=== PATIENT | male | born 1965 | race Caucasian/White ===

== ENCOUNTER → 2021-09-09 15:24 | Outpatient (ROUT) | payer OTHER, SELFPAY ==
[2021-09-09 16:02] LABS: COVID19 -Nasal RAPID Negative (Negative)
== END ==
PROVIDERS: PCP Internal Medicine; Visit Provider Family Medicine Sleep Medicine
DX: Z20.822 Contact with and (suspected) exposure to COVID-19 (principal)
CPT/HCPCS: 87635; C9803

== ENCOUNTER 2021-09-12 10:34 | Day surgery (SDC) | payer OTHER, SELFPAY ==
--- NOTE | 2021-09-12 | PATH_ITS ---
[facility] Accession Number: [id number] . 01 Material submitted: . esophagus - MID ESOPHAGUS BIOPSY . 02 Diagnosis: Mid Esophagus, Biopsy: Squamous epithelium with no diagnostic abnormality. Intraepithelial eosinophils are not increased. Negative for dysplasia and malignancy. V 09/15/2021 1145 Local . 02 Electronically signed: . Catalina Villalba MD, Pathologist NPI- [id number] . 01 Gross description: . MID ESOPHAGUS BIOPSY: Received in formalin are 4 fragment(s) of rousseau, soft tissue measuring 0.1 x 0.1 x 0.1 cm to 0.2 x 0.2 x 0.2 cm submitted entirely in 1 cassette(s) /SILVIA 09/13/20211950 Local . 02 Pathologist provided ICD-10: R13.14 . 02 CPT . 146855 Performed at: 01 [facility] [address] [facility], [place], [place] [id number] MD Peña Ariza MD Phone: [phone] Performed at: 02 [facility] [address] [place], [place] [id number] MD Catalina Villalba MD Phone: [phone]
--- NOTE | 2021-09-12 10:51 | PM.HP.1 ---
History of Present Illness History of Present Illness Date Patient Seen: 09/12/21 Time Patient Seen: 10:51 Chief complaint: EGD W/POSS BX & DILATION/BANDING Narrative: I reviewed Dr. Palacios's note. No significant changes. Patient History Medical History Dysphagia Hypertension Meds Home Medications and Allergies Home Medications Medication Instructions Recorded Confirmed Type famotidine 40 mg tablet 40 mg PO DAILY 09/12/21 09/12/21 History lisinopril 10 mg tablet 10 mg PO DAILY 09/12/21 09/12/21 History Allergies Allergy/AdvReac Type Severity Reaction Status Date / Time Latex, Natural Rubber Allergy Severe Anaphylaxis Verified 09/12/21 10:51 Review of Systems Review of Systems ROS: Yes All systems reviewed with the patient and are negative except as otherwise documented Exam Const General: cooperative and comfortable Orientation: alert HENMT Head: normocephalic Ears: external ears normal Nose: external nose normal Face and sinus: normal facial exam Mouth: oral mucosae normal Eyes General: appearance normal, both eyes and all related structures Neck Neck: normal visual inspection Chest Chest: normal inspection of the chest Resp Effort & Inspection: normal respiratory effort Cardio Rate: regular rate GI Inspection: normal to inspection Skin General: no rashes or lesions noted and No jaundice Neuro General: patient alert and moves all extremities Cognition: normal cognition Speech: speech normal Extrem General: no pedal edema Psych Appearance: grossly normal Assessment & Plan Assessment & Plan narrative: 56-year-old male with dysphagia. EGD is pursued today. Time Spent With Patient Critical Care time: I spent a total of [] minutes of critical care time on this patient's care today; this time is exclusive of procedural time.
--- NOTE | 2021-09-12 10:53 | PM.PREOP ---
Pre-operative Note COVID-19 COVID-19 status: Negative Result date/Date tested (Pos, Neg/Pending): 09/09/21 Criteria for continued procedure: Possibility delay results in more complex future surgery or treatment Interval Note History & Physical reviewed/Exam performed by Physician: Yes Changes to H&P: No ASA Class (for procedural sedation): II
[2021-09-12 10:54] VITALS: BP 143/94; PULSE 68; RESP 16; TEMP 35.9; O2SAT 99; BMI 28.5
[2021-09-12] MEDS: SODIUM CHLORIDE 0.9% 1,000 ML 84 ML IV (11:15)
--- NOTE | 2021-09-12 11:29 | PM.OP.EGD ---
Operative Date/Time/Diagnoses Date of procedure: 09/12/21 Time of procedure: 11:29 Pre-op diagnosis: Dysphagia Post-op diagnosis: same Procedure & Clinicians Study performed: EGD with balloon dilatation and biopsies Same procedure as scheduled: Yes Indications: Dysphagia Surgeon: Reynaldo Smart Procedure Notes SCOAP/Timeout: Done Procedure in detail: After the risks and benefits were explained, written and verbal informed consent was obtained. The patient was brought into the procedure room and placed into the left lateral decubitus position. Conscious sedation medication was applied as per nursing documentation. The scope was introduced into the mouth through the bite block and advanced under direct visualization to the 2nd portion of the duodenum. The scope was slowly withdrawn carefully examining the mucosa for any defects or lesions. Retroflexed views were accomplished in the stomach. The stomach was decompressed, the scope was then removed from the patient who tolerated the procedure well. Sedation minutes: 11 Complications: none Impression: 1. Duodenum no pathology appreciated from the bulb through to the 2nd portion. 2. Stomach: No outlet obstruction no mass lesions no ulcerations no significant mucosal pathology including retroflexed views of the LES 3. Esophagus: The squamocolumnar junction correlated with the top of the gastric folds. GEJ was at approximately 40 cm from the incisors. The patient did have a moderate Schatzki's ring which just barely allowed passage of the endoscope on her initial pass into stomach. No sign of any active esophagitis. I elected to proceed with balloon dilatation using a CRE balloon at the 12, 13.5, and 15 mm setting. 12 mm was held for 30 seconds and the other 2 settings for 1 minute each. There was an appropriate rent in the mucosa noted and photographed after the intervention. No sustained significant hemorrhage. I elected to take additional biopsies from the midesophagus for exclusion of eosinophilic infiltration. Endoscopic diagnosis 1. Schatzki's ring status post balloon dilatation to 15 mm 2. Otherwise visually unremarkable EGD Post-procedure Plan for aftercare: 1. Await histopathology 2. Repeat EGD for further dilatation as needed persisting symptoms of dysphagia Disposition: PACU
[2021-09-12 11:35] VITALS: BP 115/73; PULSE 80; RESP 18; TEMP 36.4; O2SAT 98
[2021-09-12 11:40] VITALS: BP 119/74; PULSE 78; RESP 18; O2SAT 95
[2021-09-12 11:45] VITALS: BP 107/85; PULSE 78; RESP 16
--- NOTE | 2021-09-12 11:48 | SUR.PREOP ---
Stable PACU stay, belly soft, no SOB,nausea/pain or discomfort. To OPD, stable.
[2021-09-12 11:51] VITALS: BP 123/86; PULSE 71; RESP 19; TEMP 36.4; O2SAT 96
[2021-09-12 12:00] VITALS: BP 114/88; PULSE 72; RESP 16; TEMP 36.5; O2SAT 97
== END 2021-09-12 12:10 | disposition home or self-care (01) ==
PROVIDERS: PCP Internal Medicine; Referring Provider Internal Medicine Gastroenterology; Visit Provider Internal Medicine Gastroenterology
PROC: 0DJ08ZZ Inspection of Upper Intestinal Tract, Via Natural or Artificial Opening Endoscopic (ICD-10-PCS; CPT 43235; principal; 2021-09-12 11:30)
DX: R13.10 Dysphagia, unspecified (principal); K22.2 Esophageal obstruction
CPT/HCPCS: 43249; 43239; J2704

== ENCOUNTER 2024-01-21 09:44 | Day surgery (SDC) | payer OTHER, SELFPAY ==
[2024-01-21] MEDS: LACTATED RINGERS 1,000 ML 150 ML IV (09:45)
[2024-01-21 10:11] VITALS: BP 130/85; PULSE 60; RESP 18; TEMP 36.5; O2SAT 98
--- NOTE | 2024-01-21 10:22 | PM.HP.1 ---
History of Present Illness History of Present Illness Date Patient Seen: 01/21/24 Time Patient Seen: 10:22 Chief complaint: SDC Narrative: 58-year-old male with a history of dysphagia and Schatzki's ring status post dilatation. I reviewed my office note. No significant changes. [facility] Medical History Dysphagia Hypertension Social History household members: spouse Smoking Status: Never smoker alcohol intake: current Meds Home Medications and Allergies Home Medications Medication Instructions Recorded Confirmed Type famotidine 40 mg tablet 40 mg PO DAILY 09/12/21 01/21/24 History lisinopril 10 mg tablet 10 mg PO DAILY 09/12/21 09/12/21 History Allergies Allergy/AdvReac Type Severity Reaction Status Date / Time Latex, Natural Rubber Allergy Severe Anaphylaxis Verified 01/21/24 10:08 Review of Systems Review of Systems ROS: Yes All systems reviewed with the patient and are negative except as otherwise documented Exam Vital Signs (past 8 hours): - 01/21/24 10:11 Temperature 97.7 F Pulse Rate 60 Respiratory Rate 18 Blood Pressure 130/85 Pulse Oximetry 98 Oxygen Delivery Method Room Air Oxygen Delivery Method Room Air Const General: cooperative HENMT Head: normal to inspection Eyes General: appearance normal, both eyes and all related structures Neck Neck: normal visual inspection Chest Chest: normal inspection of the chest Resp Effort & Inspection: normal respiratory effort Cardio Rate: regular rate GI Inspection: normal to inspection Skin General: no rashes or lesions noted Neuro General: patient alert and patient awake Extrem General: normal to inspection and no pedal edema Psych Appearance: grossly normal Assessment & Plan Assessment & Plan narrative: 58-year-old male with a history of reflux, dysphagia, Schatzki's ring. Repeat EGD and probable dilatation is pursued today.
--- NOTE | 2024-01-21 10:23 | PM.PREOP ---
Pre-operative Note Interval Note History & Physical reviewed/Exam performed by Physician: Yes Changes to H&P: No ASA Class (for procedural sedation): II
--- NOTE | 2024-01-21 10:44 | PM.OP.EGD ---
Operative Date/Time/Diagnoses Date of procedure: 01/21/24 Time of procedure: 10:44 Pre-op diagnosis: Dysphagia Post-op diagnosis: same Procedure & Clinicians Study performed: EGD with balloon dilatation Same procedure as scheduled: Yes Indications: Dysphagia Surgeon: Reynaldo Smart Procedure Notes SCOAP/Timeout: Done Procedure in detail: After the risks and benefits were explained, written and verbal informed consent was obtained. The patient was brought into the procedure room and placed into the left lateral decubitus position. Please see anesthesia note for sedation details. The scope was introduced into the mouth through the bite block and advanced under direct visualization to the 2nd portion of the duodenum. The scope was slowly withdrawn carefully examining the mucosa for any defects or lesions. Retroflexed views were accomplished in the stomach. The stomach was decompressed, the scope was then removed from the patient who tolerated the procedure well. Sedation minutes: 12 Specimen(s): none sent Complications: none Impression: 1. Duodenal: No significant mucosal pathology from the bulb through to the 2nd portion. 2. Stomach: No outlet obstruction. No ulcers or mass lesions. No significant mucosal pathology appreciated throughout. Hill valve grade 2 was noted on retroflexed views of the LES. 3. Esophagus: Patient had a subtle sliding hiatal hernia. There was a moderate Schatzki's ring once again. No sign of active erosive esophagitis. I elected to pursue balloon dilatation using the 12-15 mm CRE balloon. Each of the 3 settings was held for approximately 30 seconds. At the end of the final dilatation inspection of the ring indicated there had been an appropriate rent in the ring. There was no sustained bleeding. No additional mucosal pathology appreciated throughout the esophagus. Endoscopic diagnosis 1. Schatzki's ring status post dilatation to 15 mm. 2. Subtle small sliding hiatal hernia Post-procedure Plan for aftercare: 1. Continue current anti-reflux therapy 2. Follow up GI clinic in approximately 3 months. 3. Repeat EGD as needed 4. Advance to extremely well chewed food as tolerated. Disposition: PACU
[2024-01-21 10:46] VITALS: BP 111/73; PULSE 85; RESP 18; TEMP 36.9; O2SAT 98
[2024-01-21 10:51] VITALS: BP 111/75; PULSE 84; RESP 19; O2SAT 98
[2024-01-21 10:56] VITALS: BP 111/85; PULSE 89; RESP 17; O2SAT 97
[2024-01-21 11:01] VITALS: BP 118/90; PULSE 85; RESP 17; TEMP 36.4; O2SAT 97
[2024-01-21 11:09] VITALS: BP 119/84; PULSE 81; RESP 16; TEMP 36.2; O2SAT 98
== END 2024-01-21 11:30 | disposition home or self-care (01) ==
PROVIDERS: PCP Internal Medicine; Referring Provider Internal Medicine Gastroenterology; Visit Provider Internal Medicine Gastroenterology
PROC: 0DJ08ZZ Inspection of Upper Intestinal Tract, Via Natural or Artificial Opening Endoscopic (ICD-10-PCS; CPT 43235; principal; 2024-01-21 10:30)
DX: R13.10 Dysphagia, unspecified (principal); K22.2 Esophageal obstruction; K44.9 Diaphragmatic hernia without obstruction or gangrene
CPT/HCPCS: 43249; J2704